=== PATIENT | female | born 1955 | race African-American/Black ===

== ENCOUNTER 2017-05-18 05:24 | Emergency (ER) | payer MEDICARE, OTHER ==
--- NOTE | ~2017-05-18 | ER ---
PATIENT'S NAME: JARVIS ROSS [facility] AGE: 61 Y [address] ROOM: [place] [address] LOCATION: [facility] ADMIT DATE: 05/18/2017 ER/Outpatient Report DISCHARGE DATE: 05/18/2017 FAMILY PHYSICIAN: Perry Dickens MD ATTENDING PHYSICIAN: Gael Nichole Time of Arrival: 0522 hours. Time of Evaluation: 0522 hours. CHIEF COMPLAINT: Vomiting. HISTORY OF PRESENT ILLNESS: The patient is a 61-year-old female, who presents to the emergency department today with a chief complaint of vomiting, diarrhea. She reports she has had 4 episodes of vomiting. This occurred just prior to arrival. She has had multiple episodes of diarrhea as well this evening just prior to arrival. 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 Denies any urinary symptoms. No cough. No chest pain. No shortness of breath. PAST MEDICAL HISTORY: CVA, seizures, hypertension. PAST SURGICAL HISTORY: Tubal ligation. SOCIAL HISTORY: The patient denies any tobacco, alcohol, or illicit drug use. ALLERGIES: NO KNOWN DRUG ALLERGIES. MEDICATIONS: Please see list. PRIMARY CARE DOCTOR: Dr. Dickens. REVIEW OF SYSTEMS: All systems are reviewed by myself and are negative with the exception of those discussed in the HPI and past medical history. PHYSICAL EXAMINATION: VITAL SIGNS: Weight 61.1 kg, blood pressure 117/54, pulse 68, respiratory rate 18, temperature 96.1, oxygen saturation 99% on room air. PATIENT'S NAME: JARVIS ROSS [facility] AGE: 61 Y [address] ROOM: [place] [address] LOCATION: [facility] ADMIT DATE: 05/18/2017 ER/Outpatient Report DISCHARGE DATE: 05/18/2017 FAMILY PHYSICIAN: Perry Dickens MD ATTENDING PHYSICIAN: Gael Nichole GENERAL: The patient is a 61-year-old female, who appears older than stated age, in no acute distress. HEENT: Normocephalic, atraumatic. Pupils are equal, round, and reactive to light. NECK: Supple. There is no nuchal rigidity. CARDIOVASCULAR: Regular rate and rhythm. LUNGS: Clear to auscultation bilaterally. No wheezes, rales, or rhonchi. ABDOMEN: Soft, nontender, nondistended. No rebound, rigidity, or guarding. MUSCULOSKELETAL: The patient has weakness in the right side. SKIN: Warm and dry. LABORATORY DATA AND X-RAYS: Labs and x-rays are pending. Please see Dr. Rivera's dictation. IMPRESSION: 1. Nausea, vomiting, diarrhea. 2. Initial visit. 3. Please see Dr. Rivera's dictation. EMERGENCY DEPARTMENT COURSE: The patient was brought back to the examination room. Seen and evaluated by myself. IV is established. Laboratory analysis was ordered. The patient was ordered for a liter of normal saline, 4 mg Zofran IV. I have discussed the case with Dr. Rivera at shift change. He will follow up on laboratory analysis and disposition as well as further treatment and management. Please see his dictation. DISPOSITION: Per Dr. Rivera. DO ADRIA PATEL/pacheco /[id number] d: 05/18/17 2159 t: 05/21/17 0624, OUTPATIENT REPORT
--- NOTE | ~2017-05-18 | ER ---
PATIENT'S NAME: JARVIS ROSS [facility] AGE: 61 Y [address] ROOM: [place] [address] LOCATION: [facility] ADMIT DATE: 05/18/2017 ER/Outpatient Report DISCHARGE DATE: 05/18/2017 FAMILY PHYSICIAN: Perry Dickens MD ATTENDING PHYSICIAN: Gael Nichole CHIEF COMPLAINT: Vomiting and diarrhea. HISTORY OF PRESENT ILLNESS: Ms. Ross presents by ambulance for evaluation of vomiting and diarrhea. It is unclear exactly what the etiology of her presentation is. The patient's daughter notes that she found the patient trying to get out of bed and to the restroom. The daughter stated that upon her arrival at the patient's side, she had what appeared to be a seizure in her arms and was lowered carefully to the floor, and at that time, she was incontinent of urine, stool and in fact vomited also. This was very upsetting to the patient and she called the ambulance. The patient later confided in her daughter that she has been weaning herself off her seizure medications. No other particular abnormalities or details were available at the time of my evaluation. PAST MEDICAL HISTORY: Documented on the record and reviewed by me. SOCIAL HISTORY: Documented on the record and reviewed by me. MEDICATIONS: Documented on the record and reviewed by me. ALLERGIES: DOCUMENTED ON THE RECORD AND REVIEWED BY ME. REVIEW OF SYSTEMS: All systems reviewed and negative except as noted in the HPI. PHYSICAL EXAMINATION: VITAL SIGNS: Blood pressure 117/54, pulse 68, respiratory rate is 18, temperature 96.1, and SpO2 is 99% on room air. GENERAL: An elderly frail-appearing female, in no apparent pain or distress, recumbent on the exam table. NEURO: The patient is awake. She is alert. She converses although slow and deliberately. 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 No other obvious abnormalities. Cranial nerves appear to be grossly intact. PATIENT'S NAME: JARVIS ROSS [facility] AGE: 61 Y [address] ROOM: [place] [address] LOCATION: [facility] ADMIT DATE: 05/18/2017 ER/Outpatient Report DISCHARGE DATE: 05/18/2017 FAMILY PHYSICIAN: Perry Dickens MD ATTENDING PHYSICIAN: Gael NicholeENT: Normocephalic, atraumatic. Eyes are PERRL. Oropharynx is clear. NECK: Supple. Trachea is midline. CHEST: Heart has regular rate and rhythm with no murmurs. LUNGS: Clear to auscultation bilateral. No rhonchi, wheezes, or rales. ABDOMEN: Soft, nontender, nondistended. No rebound or guarding. BACK: Normal to inspection and palpation. EXTREMITIES: Warm and well perfused. SKIN: Appears to be grossly intact. LABORATORY DATA AND X-RAYS: Chest x-ray is unremarkable per my review. Labs: Urinalysis with no evidence of infection. Prolactin is elevated at 31.9. Procalcitonin is undetectable. CMS: Mild hyperchloremia at 111, otherwise no electrolyte abnormalities. Glucose is mildly elevated at 128. Alkaline phosphatase 184, otherwise grossly unremarkable. Lipase is 119. White count is 7.6, hemoglobin is 14.3, platelets 148. INR is 1. Lactate is 2.6. Blood cultures show no growth after 3 hours. IMPRESSION: Likely seizure versus viral gastroenteritis. EMERGENCY DEPARTMENT COURSE: The patient was seen and evaluated at bedside by Dr. Nichole initially; however, I assumed her care very soon afterwards. The patient appeared to be doing well. She received fluids and some Zofran. She was stabilized. Once all of her labs were back other than a pending Keppra level, I was able to interview the daughter further, and it was at that time that we got the collateral information regarding possible seizure and the lack of intake of seizure medications. Given the entire presentation currently, I believe the patient is most consistent with seizure. We were able to confirm that she appears to be functioning at her baseline in the emergency department, and thus, she was discharged home to the care of her daughter in a stable condition. MD HOSEA ALBERTS/pacheco /[id number] d: 05/19/17716 t: 05/23/17732, OUTPATIENT REPORT
[2017-05-18 06:07] LABS: BASOPHIL % 0.1 %; EOSINOPHIL % 0.4 %; HEMOGLOBIN 14.3 g/dL (10.0-15.0); IMMATURE GRANULOCYTE % 0.3 %; LYMPHOCYTE % 39.9 %; MCH 29.2 pg (27.0-34.0); MCHC 33.3 gm/dL (32.0-36.5); MCV 87.9 fl (83.0-98.0); MONOCYTE # 0.2 K/uL (0.0-1.0); MONOCYTE % 2.4 %; MPV 11.6 fl (9.4-12.4); NEUTROPHIL # (ANC) 4.3 K/uL (1.8-7.8); NEUTROPHIL % 56.9 %; NRBC % 0 /100WBC (0-0.00); PLATELET COUNT 148 K/uL (150-450); RBC 4.89 M/uL (3.50-5.50); RDW-CV 14.4 % (11.9-14.6); WBC 7.6 K/uL (4.0-11.0)
[2017-05-18 06:22] LABS: INR - (THERAPEUTIC) 1.07 (0.92-1.07); PROTIME 11.2 SECONDS (9.8-11.4); PTT 22 SECONDS (25-32)
[2017-05-18 06:27] LABS: ALBUMIN 3.8 gm/dL (3.5-5.0); ALK PHOS 184 IU/L (33-138); ALT 55 IU/L (12-78); ANION GAP 11.8 (10.0-19.0); AST 30 IU/L (10-40); BLOOD UREA NITROGEN 11 mg/dL (6-24); CALCIUM 10.8 mg/dL (8.5-10.5); CHLORIDE 111 mMol/L (96-110); CO2 24 mMol/L (22-32); CREATININE 0.8 mg/dL (0.5-1.1); POTASSIUM 3.8 mMol/L (3.7-5.1); SODIUM 143 mMol/L (135-145); TOTAL BILIRUBIN 0.3 mg/dL (0.0-1.5); TOTAL PROTEIN 7.5 g/dL (6.0-8.4)
[2017-05-18 07:19] LABS: BILIRUBIN URINE NEGATIVE (NEGATIVE); BLOOD URINE 10 /UL (NEGATIVE); COLOR URINE YELLOW (YELLOW); GLUCOSE URINE NEGATIVE (NEGATIVE); KETONE URINE NEGATIVE (NEGATIVE); LEUKOCYTES URINE NEGATIVE /UL (NEGATIVE); NITRITE URINE NEGATIVE (NEGATIVE); PROTEIN URINE 30 mg/dL (NEGATIVE); TURBIDITY URINE 1+ (CLEAR); UROBILINOGEN URINE NORMAL (NORMAL)
[2017-05-18 07:26] LABS: EPITHELIAL URINE 0-2 #/HPF (NEGATIVE); RBC URINE 0-2 #/HPF (NEGATIVE); WBC URINE 0-2 #/HPF (NEGATIVE)
[2017-05-18 07:27] LABS: BACTERIA URINE FEW (NEGATIVE); CRYSTALS URINE URIC ACID (NEGATIVE); MUCUS URINE 3+ (NEGATIVE)
== END 2017-05-18 08:58 | disposition disaster alternative care site (69) ==
LOC: GMED 05:24
PROVIDERS: Emergency Medicine
DX: R11.2 Nausea with vomiting, unspecified (principal); R19.7 Diarrhea, unspecified; I10 Essential (primary) hypertension; Z98.51 Tubal ligation status
CPT/HCPCS: J2405; J7030

== ENCOUNTER → 2017-05-18 | Outpatient (CLI) | payer MEDICARE, OTHER ==
[~2017-05-18] MED LIST: "\\\"PREP SPRAY\\\"-TIN4 OZ"; ASPIRIN (CHILDR81 MG PO; BACTRIM DS1 TAB PO; COLACE100 MG PO; FLORASTOR250 MG PO; KEPPRA500 MG PO; LIPITOR40 MG PO; LIPITOR80 MG PO; LOVENOX 4040 MG/0.4 SUB-Q; MEGACE40 MG PO; MILK OF MA400 MG/5 M PO; MIRALAX17 GM PO; NICODERM (HABIT14 MG TRANS; NORVASC2.5 MG PO; PLAVIX75 MG PO; PREVACID30 M1 PO; PRILOSEC10 MG PO; PRINIVIL OR ZES10 MG PO; PROTONIX40 MG PO; TYLENOL325 MG PO
== END | disposition disaster alternative care site (69) ==
LOC: GAMB 04:58
DX: R11.2 Nausea with vomiting, unspecified (principal); F03.90 Unspecified dementia, unspecified severity, without behavioral disturbance, psychotic disturbance, mood disturbance, and anxiety; I10 Essential (primary) hypertension; E78.5 Hyperlipidemia, unspecified; G40.909 Epilepsy, unspecified, not intractable, without status epilepticus; R19.7 Diarrhea, unspecified; Z79.82 Long term (current) use of aspirin; Z79.899 Other long term (current) drug therapy
CPT/HCPCS: A0425; A0427